=== PATIENT | male | born 1950 | race Caucasian/White ===

== ENCOUNTER 2017-04-08 05:07 | Day surgery (SDC) | payer MEDICARE, MEDICAID ==
[2017-04-06 09:32] LABS: MCH 20.6 pg (26.0-34.0); MCHC 29.2 g/dL (31.0-37.0); MCV 70.4 fL (80.0-100.0); MEAN PLATELET VOLUME 8.6 fL (7.4-10.4); RBC 3.55 10x6/uL (4.20-6.10); RDW 18.7 % (11.5-14.5); WBC 5.4 10x3/uL (4.8-10.8)
[2017-04-06 09:37] LABS: HEMOGLOBIN 7.3 g/dL (13.5-17.5)
--- NOTE | 2017-04-06 14:51 | NUR ---
0954 CRITIAL LAB RESULTS HGB 7.3 & HCT 25.[address] HOLCOMB'S OFFICE. PATIENT ALREADY GONE FROM HOSPITAL. STATES SHE WILL RELAY TO DR. HOLCOMB.
[~2017-04-08] VITALS: Ht 172.7 cm; Wt 64.9 kg
--- NOTE | ~2017-04-08 | HP ---
PATIENT: NIDA BYERS MEDICAL RECORD: [id number] ACCOUNT: [id number] LOCATION:[facility] : 48 ADMISSION DATE: 04/08/17 HISTORY AND PHYSICAL EXAMINATION CHIEF COMPLAINT: History of numerous colon and rectal polyps. History of colitis and proctitis. HISTORY OF PRESENT ILLNESS: The patient to undergo surveillance colonoscopy. The risks, possible complications and alternatives to procedure were explained to the patient. He elects to proceed. The discussion specifically included, but was not limited to, bleeding requiring emergency reoperation, infection, endoscopic perforation. SOCIAL HISTORY: He is a smoker, a 70-kaxg-gcek smoker, I have advised him to quit smoking. PAST MEDICAL AND SURGICAL HISTORY: A remote history of seizures, hypertension. ALLERGIES: No known drug allergies. HOME MEDICINES: Zanaflex, Coreg, lisinopril, hydrochlorothiazide, Colace. REVIEW OF SYSTEMS: Negative for diabetes or thyroid problems. Negative for renal disease or hepatitis. PHYSICAL EXAMINATION: GENERAL: The patient does not appear acutely ill. He does not appear chronically ill. VITAL SIGNS: Reviewed. HEAD: External ears appear normal. EYES: Extraocular movements are intact. NECK: Trachea is midline. CHEST: No intercostal retractions. PULMONARY: Nonlabored, no stridor. ABDOMEN: Nontender. IMPRESSION: 1. History of colitis and proctitis. 2. History of colon polyps, numerous. PLAN: Colonoscopy with argon plasma fire watchman in the OR. Due to the large number of polyps that he had, I am going to elect to perform this procedure with the argon plasma fire watchman as I believe that many polyps will need to be ablated. TRANSINT:[id number] Voice Confirmation ID: [id number] DOCUMENT ID: [id number] HISTORY AND PHYSICAL [id number] NIDA BYERS ANDRÉS HOLCOMB MD CC: YANA PEREZ MD [id number] DICTATION DATE: 04/08/17 1052 SURGICAL SUPPLIES STERILIZER: 04/08/17 1534 [facility] 04/08/17 [place] [id number] [place] [id number]
--- NOTE | ~2017-04-08 | OP ---
PATIENT NAME: NIDA BYERS MEDICAL RECORD: [id number] :48 LOCATION:D.OPS ADMISSION DATE: SURGEON: SIVAKUMAR HOLCOMB MD DATE OF OPERATION: 04/08/2017 PREOPERATIVE DIAGNOSES: 1. History of numerous colon and rectal polyps. 2. History of proctitis and colitis. POSTOPERATIVE DIAGNOSES: 1. History of numerous colon and rectal polyps. 2. History of proctitis and colitis. 3. Inadequate prep. 4. Low rectal polyp at 2.3 cm. PROCEDURES: 1. Total colonoscopy to cecum. 2. Random colon and rectal biopsies, with the cold endoscopic biopsy forceps. 3. Transanal excision of a low rectal polyp with closure. SURGEON: Sivakumar Holcomb MD. MAILING CLERK: None. BLOOD LOSS: Minimal. ANESTHESIA: General. COMPLICATIONS: None. PROCEDURE IN DETAIL: The procedure was performed in the operating room with the argon plasma office technology instructor available as I felt that the numerous polyps were going to need to be ablated. As it turns out, the patient did not require polypoid ablation. The prep was inadequate. I can only exclude obstructing masses. A combination of direct imaging as well as narrow band imaging were utilized. I irrigated and aspirated extensively. I dragged the folds. The pullback was greater than a 20-minute pullback. Random colon and rectal biopsies were obtained. On retroflexion in the rectum, a polypoid mass was noted. I withdrew the colonoscope. This polypoid mass was so close to the anus like it could actually prolapse out through the anus. We spread the buttocks. The area was sterilely prepped. I then used the electrocautery to divide the base of this pedunculated lesion. I then closed the rectal mucosa with multiple interrupted horizontal mattress of 3-0 Vicryl sutures. The patient was then extubated and conveyed to post-anesthesia care unit where he was in stable condition. I will see him in the office in 3 weeks. I will plan for his next colonoscopy to be in the GI lab with anesthesia in 3 years, that is pending the results of the pathologic evaluation of the polyp, however. I noted no endoscopic evidence of proctitis or colitis. TRANSINT:[id number] Voice Confirmation ID: [id number] DOCUMENT ID: [id number] OPERATIVE REPORT [id number] NIDA BYERS SIVAKUMAR HOLCOMB MD CC: YANA PEREZ MD [id number] DICTATION DATE: 04/08/17 110 MECHANICAL INSPECTOR: 04/08/17 2144 [facility] 04/08/17 [facility] [address] [place] [id number]
[~2017-04-08 05:07] MED LIST: ALDACTONE25 MG PO; ASPIRIN 81 MG E81 MG PO; BACLOFEN10 MG PO; BAYER CHEWABLE81 MG PO; BOUDREAUXS BUTT60 GM TOPICAL; CARAFATE1 G/10 ML PO; CENTRUM COMPLE1 EACH PO; CLEOCIN HCL300 MG PO; COLACE100 MG PO; COREG 3.1253.125 MG PO; ELAVIL10 MG PO; FERROUS SULFAT325 MG PO; FOLIC ACID1 MG PO; HYDROCHLOROTH12.5 M1 PO; HYDROCODON-ACE1 EAC9 PO; HYDROCODONE-APA1 TAB PO; IPRAT-ALBUT 0.5-3 ML UPD; K-DUR20 MEQ PO; KLOR-CON 1010 MEQ PO; LASIX20 MG PO; LASIX40 MG PO; LEVAQUIN500 MG PO; LISINOPRIL-HCTZ1 T11 PO; LISINOPRIL10 MG PO; MUCINEX DM ER1 EAC1 PO; NICODERM C1 PATCH .1 TRANSDERM; NORCO 10/325 TA1 TA1 PO; ORAPRED ODT10 MG/TAB PO; PERFOROMIS20 MCG/21 NEB; PRILOSEC20 MG PO; PRINZIDE 20/12.1 TAB PO; PROTONIX40 MG PO; PULMICORT0.5 MG/21 INH; REMERON15 MG PO; RESTORIL15 MG PO; ROBAXIN-750750 MG PO; TUMS500 MG PO; VITAMIN B-1100 M1 PO; ZANAFLEX4 MG PO; ZESTORETIC 10/11 TAB PO
[2017-04-08 08:24] VITALS: Ht 172.7 cm; Wt 64.9 kg
[2017-04-08 08:24] LABS: ANION GAP 10.6 mmol/L (8-16); CALCIUM 8.3 mg/dL (8.5-10.1); CARBON DIOXIDE 28.4 mmol/L (21.0-32.0); CREATININE - SERUM 1.1 mg/dL (0.6-1.3)
--- NOTE | 2017-04-08 08:32 | NUR ---
0800 REPORTED TO PATIENT ATE A BURRITO AT 1145 YESTERDAY AND STATED DID PREP AND IS CLEANED OUT. CRITICAL LAB WAS CALLED BY GENO HERNANDEZ HCT 25.0 HGB 7.3 NO NEW ORDERS.
== END 2017-04-08 12:15 | disposition home or self-care (01) ==
LOC: D.OPS 05:07 → D.PAN 09:15 → D.OPS 09:15 → D.PAN 09:35 → D.OPS 10:00
PROVIDERS: Anesthesiology
DX: Z12.11 Encounter for screening for malignant neoplasm of colon (principal); D12.8 Benign neoplasm of rectum; Z86.010 Personal history of colon polyps; F17.210 Nicotine dependence, cigarettes, uncomplicated; I10 Essential (primary) hypertension; Z79.899 Other long term (current) drug therapy

== ENCOUNTER 2017-04-22 10:26 | Outpatient (CLI) | payer MEDICARE, MEDICAID ==
--- NOTE | 2017-04-22 14:28 | NUR ---
1345-PERIPHERAL IV STARTED TO LEFT FOREARM TIMES ONE ATTEMPT WITH 20G CATHETER, NORMAL SALINE INITIATED VIA PUMP.
[2017-04-22 14:32] VITALS: BP 105/60; Ht 172.7 cm
--- NOTE | 2017-04-22 18:57 | NUR ---
IV DC WITH CATHER TIP INTACT
== END 2017-04-22 19:00 | disposition home or self-care (01) ==
LOC: D.OPS 10:26
DX: D64.9 Anemia, unspecified (principal)

== ENCOUNTER 2017-11-15 09:32 | Day surgery (SDC) | payer MEDICARE, MEDICAID ==
[~2017-11-15] VITALS: Ht 172.7 cm; Wt 57.7 kg
--- NOTE | ~2017-11-15 | HP ---
PATIENT: NIDA BYERS MEDICAL RECORD: [id number] ACCOUNT: [id number] LOCATION:[facility] : 48 ADMISSION DATE: 11/15/17 HISTORY AND PHYSICAL EXAMINATION CHIEF COMPLAINT: Here for upper endoscopy. HISTORY OF PRESENT ILLNESS: The patient has dysphagia. He also has iron deficiency anemia. Also, fecal occult blood positivity. We will plan for upper endoscopy with esophageal dilation. He is not on a blood thinner. He has a low cardiac ejection fraction by echocardiogram a few months ago of 20%. SOCIAL HISTORY: He is a smoker. PAST MEDICAL AND SURGICAL HISTORY: Noncontributory otherwise. PHYSICAL EXAMINATION: GENERAL: The patient does not appear acutely ill. He does appear chronically ill. VITAL SIGNS: Reviewed. EARS: External ears appear normal. EYES: Extraocular movements are intact. NECK: Trachea is midline. CHEST: No intercostal retractions. PULMONARY: Nonlabored. No stridor. IMPRESSION: 1. Dysphagia 2. Iron deficiency anemia. 3. Fecal occult blood positivity. PLAN: EGD with esophageal dilation. TRANSINT:[id number] Voice Confirmation ID: [id number] DOCUMENT ID: [id number] ANDRÉS HOLCOMB MD at 0938 CC: YANA PEREZ MD [id number] DICTATION DATE: 11/15/17 1307 ACCOUNTS COLLECTOR: 11/15/17 1342 [facility] 11/15/17 [facility] [address] [place] [address]
--- NOTE | ~2017-11-15 | OP ---
PATIENT NAME: NIDA BYERS MEDICAL RECORD: [id number] :48 LOCATION:D.[facility] ADMISSION DATE: SURGEON: SIVAKUMAR HOLCOMB MD DATE OF OPERATION: 11/15/2017 PREOPERATIVE DIAGNOSES: 1. Dysphagia. 2. Iron deficiency anemia. 3. Fecal occult blood positivity. POSTOPERATIVE DIAGNOSES: 1. Dysphagia. 2. Iron deficiency anemia. 3. Fecal occult blood positivity. 4. Hiatal hernia. 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 6. One duodenal bulbar ulcer with clotted blood at the base of the crater. 7. Distal Schatzki type peptic stricture. PROCEDURE: 1. Esophagogastroduodenoscopy with antral and distal esophageal biopsies. 2. Esophageal dilation with a cgkgiat-wxd-abvlpipw balloon to 54-Malawian. 3. Gold probe cautery to gastric antral vascular ectasias as well as to duodenal bulbar ectasias. SURGEON: Sivakumar Holcomb MD COSMETICS AND TOILETRIES SALESPERSON: None. BLOOD LOSS: Minimal. ANESTHESIA: IV sedation. COMPLICATIONS: None. Reason for the anesthesia staff being present during the procedure includes the patient's low cardiac ejection fraction. Also, the need for suction of the airway as well as manipulations to keep his airway open, both of which were necessary during the procedure. ENDOSCOPIC COURSE: The patient was conveyed to the endoscopy suite electively on 11/15/2017. IV sedation was induced by the anesthesia staff. A bite block was inserted. A gastroscope was inserted into the mouth. It was advanced easily into the hypopharynx. The esophagus was easily intubated as were the stomach and duodenum. Upon withdrawal, retroflexed and angulus views were obtained. Antral biopsies were obtained. I then withdrew into the cardia of the stomach. I advanced a ugogxye-lpa-xxgklivr balloon. I then sequentially dilated the entire length of the esophagus to 54-Malawian. The endoscope and balloon dilator were then removed. I then readvanced the endoscope. There had been no evidence of false passage or perforation. Distal cold endoscopic biopsies were obtained to rule out Cordon's esophagus. The endoscope was then withdrawn under direct vision. I will see the patient in my office in 2-3 weeks. The findings of the vascular ectasias as well as the clotted blood on duodenal bulbar also certainly could OPERATIVE REPORT [id number] SAENZ account for the patient's iron deficiency anemia and fecal occult blood positivity. TRANSINT:[id number] Voice Confirmation ID: [id number] DOCUMENT ID: [id number] SIVAKUMAR HOLCOMB MD at 0938 CC: YANA PEREZ MD [id number] DICTATION DATE: 11/15/17 1338 DRIVER UTILITY WORKER: 11/15/17 1456 [facility] 11/15/[address] [address]
[2017-11-15 10:41] LABS: HEMATOCRIT 35.9 % (42.0-54.0); HEMOGLOBIN 12.5 g/dL (13.5-17.5); MCH 34.6 pg (26.0-34.0); MCHC 34.8 g/dL (31.0-37.0); MCV 99.4 fL (80.0-100.0); MEAN PLATELET VOLUME 9.9 fL (7.4-10.4); RBC 3.61 10x6/uL (4.20-6.10); RDW 12.7 % (11.5-14.5); WBC 6.4 10x3/uL (4.8-10.8)
[2017-11-15 11:11] VITALS: BP 92/63; Ht 172.7 cm; Wt 57.7 kg
== END 2017-11-15 14:30 | disposition home or self-care (01) ==
LOC: D.OPS 09:32
PROVIDERS: Anesthesiology
DX: R13.10 Dysphagia, unspecified (principal); D50.9 Iron deficiency anemia, unspecified; R19.5 Other fecal abnormalities; K44.9 Diaphragmatic hernia without obstruction or gangrene; K31.819 Angiodysplasia of stomach and duodenum without bleeding; Z01.812 Encounter for preprocedural laboratory examination; F17.200 Nicotine dependence, unspecified, uncomplicated; I10 Essential (primary) hypertension; I50.9 Heart failure, unspecified; J44.9 Chronic obstructive pulmonary disease, unspecified

== ENCOUNTER 2020-01-20 14:02 | Emergency (ER) | payer MEDICARE, MEDICAID ==
[~2020-01-20] VITALS: Ht 172.7 cm; Wt 45.5 kg
[2020-01-20 14:08] VITALS: Ht 172.7 cm; Wt 45.5 kg
[2020-01-20 16:56] VITALS: BP 116/52
== END 2020-01-20 16:56 | disposition home or self-care (01) ==
LOC: D.ER 14:02
DX: M25.551 Pain in right hip (principal); W19.XXXA Unspecified fall, initial encounter; F17.210 Nicotine dependence, cigarettes, uncomplicated; I11.0 Hypertensive heart disease with heart failure; I50.9 Heart failure, unspecified; M54.9 Dorsalgia, unspecified